=== PATIENT | male | born 1975 | race Caucasian/White ===

== ENCOUNTER 2017-03-10 11:52 | Emergency (ER) | payer OTHER ==
[2017-03-10 12:27] VITALS: RESP 16; TEMP 98.6
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
[2017-03-10 14:04] VITALS: BP 126/80; PULSE 68; O2SAT 94
== END 2017-03-10 14:03 | disposition home or self-care (01) ==
DX: S01.83XA Puncture wound without foreign body of other part of head, initial encounter (principal); S69.91XA Unspecified injury of right wrist, hand and finger(s), initial encounter; V89.2XXA Person injured in unspecified motor-vehicle accident, traffic, initial encounter; Y92.410 Unspecified street and highway as the place of occurrence of the external cause
CPT/HCPCS: L3908